=== PATIENT | male | born 1955 | race Caucasian/White ===

== ENCOUNTER 2021-09-03 06:07 | Inpatient (IN) ==
[2021-09-03] MEDS ORDERED: NiCARdipine 2.5 MG/10 ML Syringe IVPB ONE (06:34)
[2021-09-03] MEDS ORDERED: *HR* Midazolam HCl 5 MG/5 ML VIAL IVP ONE ×2 (06:42→11:06)
[2021-09-03] MEDS ORDERED: *HR* FentaNYL (PF) 1,000 MCG/20 ML VIAL ONE (06:43)
[2021-09-03] MEDS ORDERED: Ringers Solution, Lactated 1,000 ML IVC SCH (06:45)
[2021-09-03] MEDS ORDERED: *HR* Rocuronium Bromide 50 MG/5 ML VIAL ONE ×3 (06:45→11:05)
[2021-09-03] MEDS ORDERED: Famotidine 20 MG/2 ML VIAL ONE (06:46)
[2021-09-03] MEDS ORDERED: *HR* Etomidate 20 MG/10 ML AMPUL IVP ONE (06:46)
[2021-09-03] MEDS ORDERED: Protamine Sulfate 250 MG/25 ML VIAL IVP ONE (06:47)
[2021-09-03] MEDS ORDERED: ceFAZolin 1,000 MG in Water for inj. (sterile) 10 ML IVPB ONE (06:47)
[2021-09-03] MEDS ORDERED: Calcium Gluconate 1,000 MG/10 ML VIAL ONE (06:47)
[2021-09-03] MEDS ORDERED: Tranexamic Acid 1,000 MG/10 ML VIAL ONE ×3 (06:47→10:04)
[2021-09-03] MEDS ORDERED: Chlorhexidine Rinse 15 ML MOUTHWASH MM ONE (07:03)
[2021-09-03] MEDS ORDERED: Aspirin 325 MG TABLET PO ONE (07:06)
[2021-09-03] MEDS ORDERED: Heparin 15,000 UNIT in 0.9 % Sodium Chloride 500 ML IV ONE (07:45)
[2021-09-03] MEDS ORDERED: Norepinephrine 4 MG in 0.9 % Sodium Chloride 250 ML IVC PRN (07:45)
[2021-09-03] MEDS ORDERED: Dextrose 50 % in Water (Vial) 30 ML, Sodium Bicarbonate 20 MEQ, Lidocaine 1% 5 ML, Insu... TH ONE ×3 (07:45)
[2021-09-03] MEDS ORDERED: Dextrose 50 % in Water (Vial) 30 ML, Sodium Bicarbonate 20 MEQ, Potassium Chloride 15 M... TH ONE (07:45)
[2021-09-03 08:13] LABS: ABG Base Excess 0 mEq/L (-2 to 3); ABG Chloride 107 mEq/L (98-107); ABG Glucose 121 mg/dL (60-95); ABG HCO3 26 mEq/L (21-27); ABG Ionized Calcium 1.11 mmol/L (1.15-1.35); ABG Oxygen Saturation 100 % (95-98); ABG PCO2 44 mmHg (35-45); ABG PH 7.38 pH Units (7.32-7.45); ABG PO2 187 mmHg (85-104); ABG TCO2 27 mEq/L (20-26)
[2021-09-03] MEDS ORDERED: ceFAZolin 3,000 MG in Water for inj. (sterile) 30 ML IVP ONE (08:53)
[2021-09-03 09:35] LABS: ABG Base Excess -1 mEq/L (-2 to 3); ABG Chloride 104 mEq/L (98-107); ABG Glucose 138 mg/dL (60-95); ABG HCO3 26 mEq/L (21-27); ABG Ionized Calcium 1.22 mmol/L (1.15-1.35); ABG Oxygen Saturation 100 % (95-98); ABG PCO2 51 mmHg (35-45); ABG PH 7.31 pH Units (7.32-7.45); ABG PO2 258 mmHg (85-104); ABG TCO2 28 mEq/L (20-26)
[2021-09-03 10:27] LABS: ABG Base Excess 0 mEq/L (-2 to 3); ABG Chloride 101 mEq/L (98-107); ABG Glucose 152 mg/dL (60-95); ABG HCO3 26 mEq/L (21-27); ABG Ionized Calcium 1.07 mmol/L (1.15-1.35); ABG Oxygen Saturation 100 % (95-98); ABG PCO2 47 mmHg (35-45); ABG PH 7.35 pH Units (7.32-7.45); ABG PO2 589 mmHg (85-104); ABG TCO2 27 mEq/L (20-26)
[2021-09-03 11:06] LABS: ABG Base Excess 1 mEq/L (-2 to 3); ABG Chloride 102 mEq/L (98-107); ABG Glucose 142 mg/dL (60-95); ABG HCO3 25 mEq/L (21-27); ABG Ionized Calcium 1.07 mmol/L (1.15-1.35); ABG Oxygen Saturation 100 % (95-98); ABG PCO2 41 mmHg (35-45); ABG PO2 595 mmHg (85-104); ABG TCO2 27 mEq/L (20-26)
[2021-09-03] MEDS ORDERED: *HR* FentaNYL (PF) 250 MCG/5 ML VIAL ONE (11:06)
[2021-09-03] MEDS ORDERED: Albumin Human 5% 12.5 GM/250 ML IV.SOLN ONE (11:52)
[2021-09-03 11:53] LABS: ABG Base Excess 1 mEq/L (-2 to 3); ABG Chloride 103 mEq/L (98-107); ABG Glucose 123 mg/dL (60-95); ABG HCO3 26 mEq/L (21-27); ABG Ionized Calcium 1.26 mmol/L (1.15-1.35); ABG Oxygen Saturation 100 % (95-98); ABG PCO2 41 mmHg (35-45); ABG PH 7.41 pH Units (7.32-7.45); ABG PO2 458 mmHg (85-104); ABG TCO2 27 mEq/L (20-26)
[2021-09-03 12:03] LABS: ABG Base Excess 1 mEq/L (-2 to 3); ABG Chloride 102 mEq/L (98-107); ABG Glucose 120 mg/dL (60-95); ABG HCO3 29 mEq/L (21-27); ABG Ionized Calcium 1.44 mmol/L (1.15-1.35); ABG Oxygen Saturation 100 % (95-98); ABG PCO2 65 mmHg (35-45); ABG PH 7.26 pH Units (7.32-7.45); ABG PO2 302 mmHg (85-104); ABG TCO2 31 mEq/L (20-26)
[2021-09-03] MEDS ORDERED: Ondansetron 4 MG/2 ML VIAL IVP PRN (12:17)
[2021-09-03] MEDS ORDERED: Naloxone 0.4 MG/ML INJ IVP PRN (12:17)
[2021-09-03] MEDS ORDERED: Acetaminophen 650 MG RECTAL SUPP RC PRN (12:17)
[2021-09-03] MEDS ORDERED: *HR* Dextrose 50 % in Water (Syg) 50 ML SYRINGE IVP PRN (12:17)
[2021-09-03] MEDS ORDERED: Insulin Regular, Human 100 UNIT/ML IV PRN (12:17)
[2021-09-03] MEDS ORDERED: Acetaminophen 325 MG TABLET PO PRN (12:17)
[2021-09-03] MEDS ORDERED: Calcium Gluconate 1gm/50mL 1 GM/50 ML BAG IVPB PRN (12:17)
[2021-09-03] MEDS ORDERED: Potassium Chloride 40 MEQ/200 ML BAG IVPB PRN (12:17)
[2021-09-03] MEDS: Norepinephrine 4 MG/254 ML IV.SOLN IVC SCH ×2 (12:55→19:48)
[2021-09-03 13:23] LABS: ABG Base Excess -1 mEq/L (-2 to 3); ABG HCO3 26 mEq/L (21-27); ABG Oxygen Saturation 90 % (95-98); ABG PCO2 50 mmHg (35-45); ABG PH 7.33 pH Units (7.32-7.45); ABG PO2 63 mmHg (85-104); ABG TCO2 28 mEq/L (20-26); Blood Gas Modality ASSIST CONTROL; Blood Gas VT 600 cc
[2021-09-03 13:31] LABS: Basophils % 0.4 %; Eosinophils % 0.5 %; Lymphocytes % 6.5 %
[2021-09-03 13:33] LABS: Basophils # 0.1 K/mcL (0.0-0.2); Eosinophils # 0.1 K/mcL (0.0-0.6); Hemoglobin 13.4 g/dL (12.9-16.9); Immature Granulocytes % 1.3 % (0-4); Lymphocytes # 1.8 K/mcL (0.6-4.6); Mean Corpuscular HGB Conc 34.4 g/dL (31.6-35.5); Mean Corpuscular Hemoglobin 36.2 pg (28.0-33.3); Mean Corpuscular Volume 105.4 fL (83.0-100.0); Mean Platelet Volume 10.7 fL (9.4-12.4); Monocytes # 1.9 K/mcL (0.0-1.3); Monocytes % 6.9 %; Neutrophils # 22.8 K/mcL (1.6-8.9); Platelet Count 175 K/mcL (140-400); Red Cell Distribution Width 12.2 % (11.5-14.5); Segmented Neutrophils % 84.4 %
[2021-09-03] MEDS: Pantoprazole 40 MG VIAL IVP SCH (13:33)
[2021-09-03] MEDS: 0.9 % Sodium Chloride w KCl 20 MEQ/1,000 ML MLS IVC SCH (13:34)
[2021-09-03] MEDS: Albumin Human 5% 12.5 GM/250 ML IV.SOLN IVPB PRN ×2 (13:35→13:39)
[2021-09-03 13:37] LABS: INR 1.2; Prothrombin Time 13.5 Seconds (9.4-12.1)
[2021-09-03 13:40] LABS: Activated Partial Thrombo Time 29.7 Seconds (26.0-36.0)
[2021-09-03 13:45] LABS: BUN/Creatinine Ratio 15 (6-26); Blood Urea Nitrogen 12 mg/dL (8-23); Calcium 8.3 mg/dL (8.6-10.3); Carbon Dioxide 26 mEq/L (23-29); Chloride 106 mEq/L (98-107); Glucose 153 mg/dL (70-105); Magnesium 2.1 mg/dL (1.6-2.6); Osmolality,Calculated 289 (280-300); Potassium 4.7 mEq/L (3.5-5.1); Sodium 138 mEq/L (136-145); eGFR For African Americans > 60 (> 60); eGFR For Non-African Americans > 60 (> 60)
[2021-09-03 14:01] LABS: Platelet Estimate Normal (Normal)
[2021-09-03] MEDS: *HR* FentaNYL (PF) 100 MCG/2 ML VIAL IVP PRN ×2 (14:05→18:53)
[2021-09-03] MEDS: Chlorhexidine Rinse 15 ML MOUTHWASH MM SCH ×3 (14:08→21:02)
[2021-09-03] MEDS: *HR* OxyCODONE/APAP 5/325 TABLET PO PRN ×2 (14:57→21:36)
[2021-09-03] MEDS: ceFAZolin 3,000 MG in 0.9 % Sodium Chloride 100 ML IVPB SCH (15:47)
[2021-09-03] MEDS: niCARdipine 20 MG/200 ML MLS IVC SCH ×4 (16:12→23:55)
[2021-09-03 17:26] LABS: ABG Base Excess -1 mEq/L (-2 to 3); ABG HCO3 25 mEq/L (21-27); ABG Oxygen Saturation 96 % (95-98); ABG PCO2 44 mmHg (35-45); ABG PH 7.36 pH Units (7.32-7.45); ABG PO2 83 mmHg (85-104); ABG TCO2 27 mEq/L (20-26); Blood Gas Modality CPAP/PS; Blood Gas Pressure Support 10 cm H2O
[2021-09-03] MEDS: Metoclopramide 10 MG/2 ML VIAL IVP SCH (18:28)
[2021-09-04] MEDS: Metoclopramide 10 MG/2 ML VIAL IVP SCH ×5 (00:22→23:26)
[2021-09-04] MEDS: ceFAZolin 3,000 MG in 0.9 % Sodium Chloride 100 ML IVPB SCH (00:22)
[2021-09-04] MEDS: *HR* OxyCODONE/APAP 5/325 TABLET PO PRN ×5 (01:23→18:13)
[2021-09-04] MEDS: Norepinephrine 4 MG/254 ML IV.SOLN IVC SCH ×3 (03:11→22:49)
[2021-09-04] MEDS: niCARdipine 20 MG/200 ML MLS IVC SCH ×6 (03:11→22:51)
[2021-09-04 04:04] LABS: Basophils # 0.1 K/mcL (0.0-0.2); Basophils % 0.7 %; Eosinophils % 0.2 %; Hematocrit 35.6 % (37.5-50.1); Immature Granulocytes % 0.5 % (0-4); Mean Corpuscular HGB Conc 32.9 g/dL (31.6-35.5); Mean Corpuscular Hemoglobin 35.5 pg (28.0-33.3); Mean Corpuscular Volume 107.9 fL (83.0-100.0); Mean Platelet Volume 11.1 fL (9.4-12.4); Monocytes # 1.4 K/mcL (0.0-1.3); Platelet Count 141 K/mcL (140-400); Red Cell Distribution Width 12.6 % (11.5-14.5); Segmented Neutrophils % 79.6 %
[2021-09-04 04:08] LABS: Hemoglobin 11.7 g/dL (12.9-16.9); Neutrophils # 9.9 K/mcL (1.6-8.9); White Blood Count 12.4 K/mcL (4.3-11.1)
[2021-09-04 04:19] LABS: BUN/Creatinine Ratio 14 (6-26); Blood Urea Nitrogen 11 mg/dL (8-23); Calcium 7.9 mg/dL (8.6-10.3); Carbon Dioxide 26 mEq/L (23-29); Chloride 105 mEq/L (98-107); Glucose 125 mg/dL (70-105); Magnesium 2.1 mg/dL (1.6-2.6); Osmolality,Calculated 285 (280-300); Potassium 4.2 mEq/L (3.5-5.1); Sodium 137 mEq/L (136-145); eGFR For African Americans > 60 (> 60); eGFR For Non-African Americans > 60 (> 60)
[2021-09-04 04:48] LABS: INR 1.1
[2021-09-04] MEDS: *HR* FentaNYL (PF) 100 MCG/2 ML VIAL IVP PRN ×2 (04:49→09:06)
[2021-09-04 04:50] LABS: Activated Partial Thrombo Time 28.1 Seconds (26.0-36.0)
[2021-09-04] MEDS: Furosemide 20 MG/2 ML VIAL IVP SCH ×2 (08:59→17:15)
[2021-09-04] MEDS: Pantoprazole 40 MG VIAL IVP SCH (09:00)
[2021-09-04] MEDS: Chlorhexidine Rinse 15 ML MOUTHWASH MM SCH ×4 (09:00→19:54)
[2021-09-04] MEDS: Aspirin Enteric Coated 81 MG Tablet PO SCH (09:16)
[2021-09-04] MEDS ORDERED: Amiodarone Premix 360 MG/200 ML BAG IVC ONE ×2 (16:41→16:50)
[2021-09-04] MEDS ORDERED: Amiodarone Premix 150 MG/100 ML BAG IVPB ONE ×2 (16:41→16:50)
[2021-09-04] MEDS ORDERED: *HR* LORazepam 2 MG/ML VIAL IVP PRN ×2 (18:09)
[2021-09-04] MEDS: *HR* LORazepam 2 MG/ML VIAL IVP PRN ×2 (18:37→22:26)
[2021-09-04] MEDS: 0.9 % Sodium Chloride w KCl 20 MEQ/1,000 ML MLS IVC SCH (19:18)
[2021-09-04] MEDS ORDERED: *HR* Metoprolol 5 MG/5 ML VIAL IVP ONE ×2 (19:37→19:45)
[2021-09-04] MEDS: Calcium Gluconate 1gm/50mL 1 GM/50 ML BAG IVPB PRN (19:43)
[2021-09-04] MEDS ORDERED: *HR* Metoprolol 5 MG/5 ML VIAL IVP PRN (19:48)
[2021-09-04] MEDS ORDERED: DilTIAZem 50 MG in 0.9 % Sodium Chloride 40 ML IVC SCH (21:30)
[2021-09-04] MEDS ORDERED: Amiodarone Premix 360 MG/200 ML BAG IVC SCH (22:50)
[2021-09-04] MEDS: Amiodarone Premix 360 MG/200 ML BAG IVC SCH (23:02)
[2021-09-05] MEDS ORDERED: DilTIAZem 50 MG in 0.9 % Sodium Chloride 40 ML IVC SCH (00:03)
[2021-09-05] MEDS: Dexmedetomidine HCl 400 MCG/100 ML MLS IVC SCH ×3 (00:44→21:25)
[2021-09-05] MEDS: niCARdipine 20 MG/200 ML MLS IVC SCH ×3 (02:13→23:21)
[2021-09-05] MEDS: 0.9 % Sodium Chloride w KCl 20 MEQ/1,000 ML MLS IVC SCH ×2 (02:14→23:21)
[2021-09-05 04:16] LABS: Basophils # 0.1 K/mcL (0.0-0.2); Basophils % 0.4 %; Eosinophils % 0.2 %; Hematocrit 33.8 % (37.5-50.1); Immature Granulocytes % 0.5 % (0-4); Lymphocytes # 1.1 K/mcL (0.6-4.6); Lymphocytes % 7.6 %; Mean Corpuscular HGB Conc 32.5 g/dL (31.6-35.5); Mean Corpuscular Hemoglobin 35.3 pg (28.0-33.3); Mean Corpuscular Volume 108.3 fL (83.0-100.0); Mean Platelet Volume 11.7 fL (9.4-12.4); Monocytes # 1.4 K/mcL (0.0-1.3); Monocytes % 9.8 %; Neutrophils # 11.3 K/mcL (1.6-8.9); Platelet Count 120 K/mcL (140-400); Red Blood Count 3.12 M/mcL (4.19-5.50); Red Cell Distribution Width 12.2 % (11.5-14.5); Segmented Neutrophils % 81.5 %; White Blood Count 13.9 K/mcL (4.3-11.1)
[2021-09-05 04:22] LABS: INR 1.2; Prothrombin Time 13.4 Seconds (9.4-12.1)
[2021-09-05 04:24] LABS: BUN/Creatinine Ratio 13 (6-26); Blood Urea Nitrogen 10 mg/dL (8-23); Calcium 7.9 mg/dL (8.6-10.3); Carbon Dioxide 28 mEq/L (23-29); Chloride 99 mEq/L (98-107); Glucose 150 mg/dL (70-105); Magnesium 1.8 mg/dL (1.6-2.6); Osmolality,Calculated 278 (280-300); Potassium 4.2 mEq/L (3.5-5.1); Sodium 133 mEq/L (136-145); eGFR For African Americans > 60 (> 60); eGFR For Non-African Americans > 60 (> 60)
[2021-09-05] MEDS: Amiodarone Premix 360 MG/200 ML BAG IVC SCH ×4 (04:24→23:30)
[2021-09-05] MEDS: Calcium Gluconate 1gm/50mL 1 GM/50 ML BAG IVPB PRN ×2 (05:14→14:35)
[2021-09-05] MEDS: Metoclopramide 10 MG/2 ML VIAL IVP SCH ×4 (06:04→23:22)
[2021-09-05] MEDS: Pantoprazole 40 MG VIAL IVP SCH (07:42)
[2021-09-05] MEDS: Furosemide 20 MG/2 ML VIAL IVP SCH ×2 (07:42→17:16)
[2021-09-05] MEDS: Aspirin Enteric Coated 81 MG Tablet PO SCH (07:42)
[2021-09-05] MEDS: Chlorhexidine Rinse 15 ML MOUTHWASH MM SCH ×2 (07:43→21:53)
[2021-09-05] MEDS: *HR* OxyCODONE/APAP 5/325 TABLET PO PRN ×2 (09:33→21:57)
[2021-09-05] MEDS: Insulin LISPRO 300 UNITS/3 ML VIAL SUBQ SCH ×3 (10:31→16:42)
[2021-09-05] MEDS: Albumin Human 5% 12.5 GM/250 ML IV.SOLN IVPB PRN ×2 (14:36→14:55)
[2021-09-05] MEDS: Norepinephrine 4 MG/254 ML IV.SOLN IVC SCH ×2 (19:18→19:19)
[2021-09-05] MEDS ORDERED: Insulin LISPRO 300 UNITS/3 ML VIAL SUBQ SCH (21:00)
[2021-09-06] MEDS: *HR* OxyCODONE/APAP 5/325 TABLET PO PRN (01:45)
[2021-09-06] MEDS: niCARdipine 20 MG/200 ML MLS IVC SCH ×2 (03:31→14:23)
[2021-09-06 04:46] LABS: Basophils % 0.2 %; Eosinophils # 0.1 K/mcL (0.0-0.6); Eosinophils % 0.5 %; Hematocrit 31.1 % (37.5-50.1); Hemoglobin 10.3 g/dL (12.9-16.9); Immature Granulocytes % 0.6 % (0-4); Immature Platelets 9.3 % (1.1-6.1); Lymphocytes # 0.7 K/mcL (0.6-4.6); Lymphocytes % 5.1 %; Mean Corpuscular HGB Conc 33.1 g/dL (31.6-35.5); Mean Corpuscular Hemoglobin 34.9 pg (28.0-33.3); Mean Corpuscular Volume 105.4 fL (83.0-100.0); Mean Platelet Volume 11.7 fL (9.4-12.4); Monocytes # 1.4 K/mcL (0.0-1.3); Monocytes % 10.1 %; Neutrophils # 11.5 K/mcL (1.6-8.9); Nucleated Red Blood Cells 0.1 /100 WBC (0); Platelet Count 123 K/mcL (140-400); Red Blood Count 2.95 M/mcL (4.19-5.50); Red Cell Distribution Width 11.9 % (11.5-14.5); Segmented Neutrophils % 83.5 %; White Blood Count 13.8 K/mcL (4.3-11.1)
[2021-09-06] MEDS: Dexmedetomidine HCl 400 MCG/100 ML MLS IVC SCH (05:00)
[2021-09-06 05:25] LABS: BUN/Creatinine Ratio 17 (6-26); Blood Urea Nitrogen 10 mg/dL (8-23); Carbon Dioxide 29 mEq/L (23-29); Chloride 95 mEq/L (98-107); Glucose 145 mg/dL (70-105); Osmolality,Calculated 272 (280-300); Potassium 3.5 mEq/L (3.5-5.1); Sodium 130 mEq/L (136-145); eGFR For African Americans > 60 (> 60); eGFR For Non-African Americans > 60 (> 60)
[2021-09-06] MEDS: Metoclopramide 10 MG/2 ML VIAL IVP SCH ×3 (05:47→17:35)
[2021-09-06] MEDS: Amiodarone Premix 360 MG/200 ML BAG IVC SCH ×4 (05:56→23:54)
[2021-09-06] MEDS: Chlorhexidine Rinse 15 ML MOUTHWASH MM SCH ×2 (08:30→20:29)
[2021-09-06] MEDS: Aspirin Enteric Coated 81 MG Tablet PO SCH (08:30)
[2021-09-06] MEDS: Furosemide 20 MG/2 ML VIAL IVP SCH (08:30)
[2021-09-06] MEDS ORDERED: *HR* LORazepam 2 MG/ML VIAL IVP PRN ×3 (09:48)
[2021-09-06] MEDS ORDERED: *HR* OxyCODONE/APAP 5/325 TABLET PO PRN (09:48)
[2021-09-06] MEDS ORDERED: *HR* Dextrose 50 % in Water (Syg) 50 ML SYRINGE IVP PRN (09:48)
[2021-09-06] MEDS ORDERED: Ondansetron 4 MG/2 ML VIAL IVP PRN (09:48)
[2021-09-06] MEDS ORDERED: Naloxone 0.4 MG/ML INJ IVP PRN (09:48)
[2021-09-06] MEDS ORDERED: Acetaminophen 325 MG TABLET PO PRN (09:48)
[2021-09-06] MEDS ORDERED: Insulin Regular, Human 100 UNIT/ML IV PRN (09:48)
[2021-09-06] MEDS: *HR* Heparin 5,000 UNIT/ML VIAL SQ SCH ×2 (11:12→17:35)
[2021-09-06] MEDS: Insulin LISPRO 300 UNITS/3 ML VIAL SUBQ SCH ×4 (11:18→20:22)
[2021-09-06] MEDS: *HR* Metoprolol 5 MG/5 ML VIAL IVP PRN ×2 (13:41→23:10)
[2021-09-06] MEDS: Norepinephrine 4 MG/254 ML IV.SOLN IVC SCH (14:23)
[2021-09-06] MEDS ORDERED: Furosemide 20 MG/2 ML VIAL IVP SCH (17:00)
[2021-09-07] MEDS: *HR* Heparin 5,000 UNIT/ML VIAL SQ SCH (05:55)
[2021-09-07] MEDS: Amiodarone Premix 360 MG/200 ML BAG IVC SCH ×4 (05:56→23:22)
[2021-09-07 07:52] LABS: Basophils % 0.3 %; Eosinophils # 0.1 K/mcL (0.0-0.6); Eosinophils % 0.5 %; Hematocrit 32.8 % (37.5-50.1); Hemoglobin 11.1 g/dL (12.9-16.9); Immature Granulocytes % 0.5 % (0-4); Lymphocytes # 0.8 K/mcL (0.6-4.6); Lymphocytes % 5.6 %; Mean Corpuscular HGB Conc 33.8 g/dL (31.6-35.5); Mean Corpuscular Hemoglobin 35.2 pg (28.0-33.3); Mean Corpuscular Volume 104.1 fL (83.0-100.0); Mean Platelet Volume 11.6 fL (9.4-12.4); Monocytes # 1.8 K/mcL (0.0-1.3); Monocytes % 12.1 %; Neutrophils # 11.9 K/mcL (1.6-8.9); Platelet Count 195 K/mcL (140-400); Red Blood Count 3.15 M/mcL (4.19-5.50); Red Cell Distribution Width 12.1 % (11.5-14.5); White Blood Count 14.7 K/mcL (4.3-11.1)
[2021-09-07 08:08] LABS: BUN/Creatinine Ratio 16 (6-26); Blood Urea Nitrogen 11 mg/dL (8-23); Carbon Dioxide 29 mEq/L (23-29); Chloride 94 mEq/L (98-107); Glucose 136 mg/dL (70-105); Osmolality,Calculated 271 (280-300); Sodium 130 mEq/L (136-145); eGFR For African Americans > 60 (> 60); eGFR For Non-African Americans > 60 (> 60)
[2021-09-07] MEDS: Insulin LISPRO 300 UNITS/3 ML VIAL SUBQ SCH ×4 (08:20→20:58)
[2021-09-07] MEDS: Aspirin Enteric Coated 81 MG Tablet PO SCH (08:21)
[2021-09-07] MEDS: Chlorhexidine Rinse 15 ML MOUTHWASH MM SCH ×2 (08:22→20:58)
[2021-09-07] MEDS: *HR* Rivaroxaban 10 MG TABLET PO SCH (15:58)
[2021-09-08] MEDS: Amiodarone Premix 360 MG/200 ML BAG IVC SCH (06:35)
[2021-09-08] MEDS: Aspirin Enteric Coated 81 MG Tablet PO SCH (08:03)
[2021-09-08] MEDS: Chlorhexidine Rinse 15 ML MOUTHWASH MM SCH ×2 (08:03→19:58)
[2021-09-08] MEDS: Insulin LISPRO 300 UNITS/3 ML VIAL SUBQ SCH ×4 (08:04→20:44)
[2021-09-08] MEDS ORDERED: *HR* Amiodarone 200 MG TABLET PO SCH (09:15)
[2021-09-08] MEDS: Furosemide 40 MG/4 ML VIAL IVP SCH (14:23)
[2021-09-08] MEDS: *HR* Rivaroxaban 10 MG TABLET PO SCH (17:24)
[2021-09-08] MEDS: *HR* Amiodarone 200 MG TABLET PO SCH (19:58)
[2021-09-09] MEDS: Insulin LISPRO 300 UNITS/3 ML VIAL SUBQ SCH ×4 (07:30→22:03)
[2021-09-09 07:38] LABS: Basophils # 0.1 K/mcL (0.0-0.2); Basophils % 0.6 %; Eosinophils # 0.2 K/mcL (0.0-0.6); Eosinophils % 1.8 %; Hematocrit 31.1 % (37.5-50.1); Hemoglobin 10.5 g/dL (12.9-16.9); Immature Granulocytes % 0.7 % (0-4); Lymphocytes % 7.7 %; Mean Corpuscular HGB Conc 33.8 g/dL (31.6-35.5); Mean Corpuscular Hemoglobin 35.4 pg (28.0-33.3); Mean Corpuscular Volume 104.7 fL (83.0-100.0); Monocytes # 1.8 K/mcL (0.0-1.3); Monocytes % 14.3 %; Neutrophils # 9.3 K/mcL (1.6-8.9); Platelet Count 301 K/mcL (140-400); Red Blood Count 2.97 M/mcL (4.19-5.50); Red Cell Distribution Width 12.1 % (11.5-14.5); Segmented Neutrophils % 74.9 %; White Blood Count 12.4 K/mcL (4.3-11.1)
[2021-09-09 08:01] LABS: BUN/Creatinine Ratio 16 (6-26); Blood Urea Nitrogen 12 mg/dL (8-23); Calcium 8.1 mg/dL (8.6-10.3); Carbon Dioxide 28 mEq/L (23-29); Chloride 97 mEq/L (98-107); Glucose 132 mg/dL (70-105); Magnesium 1.8 mg/dL (1.6-2.6); Osmolality,Calculated 280 (280-300); Potassium 3.2 mEq/L (3.5-5.1); Sodium 134 mEq/L (136-145); eGFR For African Americans > 60 (> 60); eGFR For Non-African Americans > 60 (> 60)
[2021-09-09] MEDS: *HR* Amiodarone 200 MG TABLET PO SCH ×2 (09:09→21:56)
[2021-09-09] MEDS: Chlorhexidine Rinse 15 ML MOUTHWASH MM SCH ×2 (09:09→21:57)
[2021-09-09] MEDS: Aspirin Enteric Coated 81 MG Tablet PO SCH (09:09)
[2021-09-09] MEDS: DilTIAZem CD (24hr) 300 MG CAP.ER.24H PO SCH (09:09)
[2021-09-09] MEDS: Furosemide 40 MG/4 ML VIAL IVP SCH (09:09)
[2021-09-09] MEDS ORDERED: Furosemide 40 MG/4 ML VIAL IVP ONE (12:39)
[2021-09-09] MEDS: *HR* Rivaroxaban 10 MG TABLET PO SCH (17:22)
[2021-09-09] MEDS ORDERED: Melatonin 3 MG TABLET PO PRN (22:10)
[2021-09-09] MEDS ORDERED: GuaiFENesin Liq 200 MG/10 ML UDC PO PRN (22:11)
[2021-09-10] MEDS: *HR* Amiodarone 200 MG TABLET PO SCH (09:12)
[2021-09-10] MEDS: DilTIAZem CD (24hr) 300 MG CAP.ER.24H PO SCH (09:12)
[2021-09-10] MEDS: Aspirin Enteric Coated 81 MG Tablet PO SCH (09:12)
[2021-09-10] MEDS: Chlorhexidine Rinse 15 ML MOUTHWASH MM SCH (09:12)
[2021-09-10] MEDS: Furosemide 40 MG/4 ML VIAL IVP SCH (09:14)
[2021-09-10] MEDS: Insulin LISPRO 300 UNITS/3 ML VIAL SUBQ SCH ×2 (09:14→14:57)
[2021-09-10] MEDS ORDERED: Lidocaine Viscous Oral Soln 15 ML SOLUTION MM PRN (09:29)
[2021-09-10] MEDS ORDERED: 0.9 % Sodium Chloride 500 ML IVC ONE (09:30)
[2021-09-10] MEDS: *HR* FentaNYL (PF) 100 MCG/2 ML VIAL IVP PRN ×4 (10:00→10:30)
[2021-09-10] MEDS: *HR* Midazolam HCl 5 MG/5 ML VIAL IVP PRN ×4 (10:00→10:30)
[2021-09-10 11:48] VITALS: TEMP 97.6
[2021-09-10 12:25] VITALS: BP 136/80; PULSE 75
[2021-09-10 16:19] VITALS: O2SAT 99
== END 2021-09-10 16:25 | disposition home or self-care (01) | DRG 234 ==
LOC: SAMDAY 06:07 → ICNU 12:56 → 2NNU 09-06 13:43
PROVIDERS: ADMIT Thoracic Surgery (Cardiothoracic Vascular Surgery); ATTEND Thoracic Surgery (Cardiothoracic Vascular Surgery)